=== PATIENT | male | born 2000 | race Caucasian/White ===

== ENCOUNTER 2021-03-10 12:47 | Emergency (ER) | payer OTHER ==
[2021-03-10] MEDS ORDERED: ROBAXIN500 MG PO (14:24)
[2021-03-10] MEDS ORDERED: MOTRIN600 MG PO (14:24)
== END 2021-03-10 15:00 | disposition home or self-care (01) ==
LOC: FER 12:47
DX: S39.012A Strain of muscle, fascia and tendon of lower back, initial encounter (principal); Z98.890 Other specified postprocedural states; W17.89XA Other fall from one level to another, initial encounter; Y93.39 Activity, other involving climbing, rappelling and jumping off
CPT/HCPCS: 72100; J1885